=== PATIENT | female | born 1950 | race Caucasian/White ===

== ENCOUNTER 2020-01-30 22:10 | Emergency (ER) | payer MEDICARE, BC ==
[~2020-01-30] VITALS: Ht 162.6 cm; Wt 54.9 kg
[2020-01-30 22:17] VITALS: BP 149/70
[2020-01-30] MEDS ORDERED: PIPERACILLIN /TAZOBACTAM 3.375 G in IV D5W 50 ML IV ONE (22:30)
[2020-01-30] MEDS ORDERED: PIPERACILLIN /TAZOBACTAM 3.375 G VIAL IV ONE (22:36)
--- NOTE | 2020-01-30 22:51 | NUR ---
Patient discharged to home in stable condition. Written and verbal after care instructions given. Patient verbalizes understanding of instruction and RX. IV removed. Catheter intact and site benign. Pressure and 4x4 applied to site. No bleeding noted.
== END 2020-01-30 22:52 | disposition home or self-care (01) ==
LOC: ER 22:15
DX: S61.237A Puncture wound without foreign body of left little finger without damage to nail, initial encounter (principal); Z96.652 Presence of left artificial knee joint; Z86.718 Personal history of other venous thrombosis and embolism; W54.0XXA Bitten by dog, initial encounter; Y93.89 Activity, other specified; Y92.89 Other specified places as the place of occurrence of the external cause; Y99.8 Other external cause status
CPT/HCPCS: 96365; 99284; J2543; J7060